=== PATIENT | female | born 1940 | race Caucasian/White ===

== ENCOUNTER 2016-06-02 10:36 | Outpatient (CLI) | payer MEDICARE ==
[2016-06-02 11:23] LABS: #Basophils 0.1 thou/uL (0.0-0.2); #Eosinphils 0.3 thou/uL (0.0-0.7); #Lymphocytes 1.6 thou/uL (1.20-3.40); #Monocytes 0.5 thou/uL (0.11-0.59); #Neutrophils 3.7 thou/uL (1.40-6.50); %Basophils 1.4 % (0.0-1.0); %Eosinophils 4.8 % (0.0-10.0); %Monocytes 8.7 % (0.0-10.0); %Neutrophils 60.1 % (42.0-75.0); Hemoglobin 11.7 g/dL (12.0-16.0); Mean Corpuscular HGB CONC 31.3 g/dL (32.0-36.0); Mean Corpuscular Hemoglobin 30.5 pg (27.0-31.0); Mean Corpuscular Volume 97.5 fl (81.0-99.0); Mean Platelet Volume 7.2 fL (7.4-10.4); Platelet Count 224 thou/uL (130-400); RBC Distribution Width 13.8 % (11.5-14.5); Red Blood Cell (RBC) Count 3.84 mill/uL (4.20-5.40); White Blood Cell (WBC) Count 6.2 thou/uL (4.8-10.8)
[2016-06-02 11:34] LABS: Hemoglobin A1c 9.6 % (4.0-6.0)
[2016-06-02 11:42] LABS: ALT (SGPT) 21 U/L (0-55); AST (SGOT) 18 U/L (5-34); Albumin 4.2 g/dL (3.4-4.8); Alkaline Phosphatase 89 U/L (40-150); Anion Gap 16 mmol/L (10-20); BUN (Urea Nitrogen) 25 mg/dL (9.8-20.1); Bilirubin, Total 0.6 mg/dL (0.2-1.2); Calc. Creatinine Clearance 0 mL/min (70-130); Calcium 9.9 mg/dL (7.8-10.44); Carbon Dioxide 25 mmol/L (23-31); Cardiac Risk 5.2 (Less than 4.5); Chloride 102 mmol/L (98-107); Cholesterol 282 mg/dL (< 200 Desired); Estimated GFR-MDRD 47; Globulin 2.5 g/dL (2.4-3.5); Glucose 249 mg/dL (83-110); HDL Cholesterol 54 mg/dL (>60 Neg Risk); LDL Cholesterol, Calculated 178 mg/dL; Potassium 4.6 mmol/L (3.5-5.1); Protein, Total 6.7 g/dL (5.8-8.1); Sodium 138 mmol/L (136-145); Triglycerides 248 mg/dL (Less than 150)
== END 2016-06-02 10:37 | disposition home or self-care (01) ==
LOC: MADLABBHPM 10:36
PROVIDERS: ATTEND Family Medicine
DX: E11.9 Type 2 diabetes mellitus without complications (principal); I10 Essential (primary) hypertension
CPT/HCPCS: 36415; 80053; 80061; 83036; 84443; 85025

== ENCOUNTER 2016-08-19 09:02 | Outpatient (CLI) | payer MEDICARE ==
[2016-08-19 10:42] LABS: #Basophils 0.1 thou/uL (0.0-0.2); #Eosinphils 0.6 thou/uL (0.0-0.7); #Lymphocytes 1.3 thou/uL (1.20-3.40); #Monocytes 0.6 thou/uL (0.11-0.59); #Neutrophils 3.3 thou/uL (1.40-6.50); %Basophils 2.5 % (0.0-1.0); %Lymphocytes 22.2 % (21.0-51.0); %Neutrophils 55.3 % (42.0-75.0); Hemoglobin 11.4 g/dL (12.0-16.0); Mean Corpuscular HGB CONC 32.6 g/dL (32.0-36.0); Mean Corpuscular Hemoglobin 31.5 pg (27.0-31.0); Mean Corpuscular Volume 96.6 fl (81.0-99.0); Platelet Count 218 thou/uL (130-400); RBC Distribution Width 12.3 % (11.5-14.5); Red Blood Cell (RBC) Count 3.63 mill/uL (4.20-5.40)
[2016-08-19 10:56] LABS: ALT (SGPT) 17 U/L (8-55); AST (SGOT) 15 U/L (5-34); Albumin 4.1 g/dL (3.4-4.8); Alkaline Phosphatase 89 U/L (40-150); Anion Gap 15 mmol/L (10-20); BUN (Urea Nitrogen) 27 mg/dL (9.8-20.1); Bilirubin, Total 0.6 mg/dL (0.2-1.2); Calc. Creatinine Clearance 0 mL/min (70-130); Calcium 9.7 mg/dL (7.8-10.44); Carbon Dioxide 25 mmol/L (23-31); Cardiac Risk 3.4 (Less than 4.5); Chloride 104 mmol/L (98-107); Cholesterol 202 mg/dl (< 200 Desired); Estimated GFR-MDRD 44; Globulin 2.5 g/dL (2.4-3.5); Glucose 298 mg/dL (83-110); HDL Cholesterol 59 mg/dL (>60 Neg Risk); LDL Cholesterol, Calculated 106 mg/dL; Potassium 4.5 mmol/L (3.5-5.1); Protein, Total 6.6 g/dL (6.0-8.3); Sodium 139 mmol/L (136-145); Triglycerides 185 mg/dL (Less than 150)
[2016-08-19 11:06] LABS: Hemoglobin A1c 10.8 % (4.0-6.0)
[2016-08-19 17:34] LABS: Creatinine, Urine 111.99 mg/dL (47-110); Microalbumin Urine 2.7 mg/dL (0.5-50.0); Microalbumin/Creat Ratio 24.1 mg/g (Less than 30)
== END 2016-08-19 09:03 ==
LOC: MADLABBHPM 09:02
PROVIDERS: ATTEND Family Medicine
DX: E78.5 Hyperlipidemia, unspecified (principal); F32.9 Major depressive disorder, single episode, unspecified; E11.9 Type 2 diabetes mellitus without complications
CPT/HCPCS: 36415; 80053; 80061; 82043; 83036; 85025

== ENCOUNTER 2017-02-22 11:51 | Outpatient (CLI) | payer MEDICARE ==
[2017-02-22 12:53] LABS: #Basophils 0.1 thou/uL (0.0-0.2); #Eosinphils 0.2 thou/uL (0.0-0.7); #Lymphocytes 1.7 thou/uL (1.20-3.40); #Monocytes 0.7 thou/uL (0.11-0.59); #Neutrophils 3.3 thou/uL (1.40-6.50); %Basophils 1.3 % (0.0-1.0); %Lymphocytes 27.7 % (21.0-51.0); %Monocytes 12.1 % (0.0-10.0); %Neutrophils 54.9 % (42.0-75.0); Mean Corpuscular Hemoglobin 30.6 pg (27.0-31.0); Mean Corpuscular Volume 95.6 fl (81.0-99.0); Mean Platelet Volume 7.7 fL (7.4-10.4); Platelet Count 185 thou/uL (130-400); RBC Distribution Width 13.3 % (11.5-14.5); Red Blood Cell (RBC) Count 3.61 mill/uL (4.20-5.40)
[2017-02-22 13:07] LABS: ALT (SGPT) 26 U/L (8-55); AST (SGOT) 17 U/L (5-34); Albumin 4.1 g/dL (3.4-4.8); Alkaline Phosphatase 72 U/L (40-150); Anion Gap 14 mmol/L (10-20); BUN (Urea Nitrogen) 21 mg/dL (9.8-20.1); Bilirubin, Total 0.5 mg/dL (0.2-1.2); Calc. Creatinine Clearance 0 mL/min (70-130); Calcium 9.8 mg/dL (7.8-10.44); Carbon Dioxide 28 mmol/L (23-31); Cardiac Risk 4.6 (Less than 4.5); Chloride 104 mmol/L (98-107); Cholesterol 246 mg/dl (< 200 Desired); Estimated GFR-MDRD 53; Globulin 2.6 g/dL (2.4-3.5); Glucose 75 mg/dL (83-110); HDL Cholesterol 54 mg/dL (>60 Neg Risk); LDL Cholesterol, Calculated 162 mg/dL; Potassium 4.4 mmol/L (3.5-5.1); Protein, Total 6.7 g/dL (6.0-8.3); Sodium 142 mmol/L (136-145); Triglycerides 148 mg/dL (Less than 150)
[2017-02-22 13:50] LABS: Hemoglobin A1c 7.1 % (4.0-6.0)
[2017-02-25 19:12] LABS: H. pylori IgA ABS Less than 9.0 units (0.0-8.9); H. pylori IgG ABS 1.1 U/mL (0.0-0.8); H. pylori IgM ABS 13.1 units (0.0-8.9)
== END 2017-02-22 11:52 | disposition home or self-care (01) ==
LOC: MADLABBHPM 11:51
PROVIDERS: ATTEND Family Medicine
DX: E11.9 Type 2 diabetes mellitus without complications (principal); E78.2 Mixed hyperlipidemia; R35.0 Frequency of micturition; R14.0 Abdominal distension (gaseous)
CPT/HCPCS: 80053; 80061; 83036; 85025; 87077; 87086; 87186

== ENCOUNTER 2017-08-19 08:34 | Outpatient (CLI) | payer MEDICARE ==
--- NOTE | 2017-08-19 09:22 | ULT ---
ULTRASOUND GALLBLADDER RIGHT UPPER QUADRANT: HISTORY: Right upper quadrant pain. COMPARISON: None. TECHNIQUE: Real-time, clifton scale, color Doppler, and spectral analysis of the right upper quadrant of the abdome n. FINDINGS: Visualized portions of the pancreas are unremarkable. Hepatic echotexture is normal. Negative Sonog raphic Nichols's sign according to the technologist. Common bile duct measures less than 3 mm, normal . Gallbladder wall thickness is normal. No pericholecystic fluid. The right kidney measures 10.9 x 4.4 x 4.6 cm without mass, hydronephrosis, or abnormal calcification s. IMPRESSION: Normal exam. POS: [facility]
== END 2017-08-19 08:35 | disposition home or self-care (01) ==
LOC: MADRAD 08:34
PROVIDERS: ATTEND Family Medicine
DX: R10.11 Right upper quadrant pain (principal)
CPT/HCPCS: 76705

== ENCOUNTER 2018-03-14 14:51 | Emergency (ER) | payer MEDICARE, OTHER ==
[~2018-03-14 14:51] MED LIST: Iopamidol 370 76% 125 ML VIAL FS ONE
[2018-03-14] MEDS ORDERED: Ondansetron PF 4 MG/2 ML Vial ONE (15:27)
[2018-03-14 15:36] LABS: #Basophils 0.1 thou/uL (0.0-0.2); #Eosinphils 0.3 thou/uL (0.0-0.7); #Lymphocytes 2.6 thou/uL (1.20-3.40); #Monocytes 0.6 thou/uL (0.11-0.59); #Neutrophils 4.4 thou/uL (1.40-6.50); %Basophils 1.5 % (0.0-1.0); %Eosinophils 4.1 % (0.0-10.0); %Lymphocytes 31.9 % (21.0-51.0); %Neutrophils 54.5 % (42.0-75.0); Hemoglobin 12.1 g/dL (12.0-16.0); Mean Corpuscular HGB CONC 32.6 g/dL (32.0-36.0); Mean Corpuscular Hemoglobin 30.9 pg (27.0-31.0); Mean Corpuscular Volume 94.8 fL (78.0-98.0); Mean Platelet Volume 6.5 fL (7.4-10.4); Platelet Count 278 thou/uL (130-400); RBC Distribution Width 13.2 % (11.5-14.5); Red Blood Cell (RBC) Count 3.91 mill/uL (4.20-5.40)
[2018-03-14 15:40] LABS: ALT (SGPT) 29 U/L (8-55); AST (SGOT) 25 U/L (5-34); Albumin 4.5 g/dL (3.4-4.8); Alkaline Phosphatase 81 U/L (40-150); Anion Gap 20 mmol/L (10-20); BUN (Urea Nitrogen) 31 mg/dL (9.8-20.1); Bilirubin, Total 0.6 mg/dL (0.2-1.2); Calc. Creatinine Clearance 0 mL/min (70-130); Calcium 9.9 mg/dL (7.8-10.44); Carbon Dioxide 23 mmol/L (23-31); Chloride 104 mmol/L (98-107); Estimated GFR-MDRD 41; Globulin 2.7 g/dL (2.4-3.5); Protein, Total 7.2 g/dL (6.0-8.3); Sodium 143 mmol/L (136-145)
[2018-03-14 15:41] LABS: Glucose 177 mg/dL (83-110)
--- NOTE | 2018-03-14 16:37 | CT ---
CT HEAD NONCONTRAST: 03/14/2018 HISTORY: Altered mental status. COMPARISON: 05/27/2015 FINDINGS: Again noted are chronic small vessel ischemic changes and cerebral volume loss, not significantly pro gressed from the prior exam. There is no evidence of an acute cortical infarction, hemorrhage, mass effect, or midline shift. The ventricular system is mildly prominent and slightly out of proportion to the degree of sulcal atrophy, likely related to greater central cerebral atrophy. This is also st able when compared to the study in 2016. There has been no significant interval change from the prior exam. IMPRESSION: 1. No acute intracranial abnormality is demonstrated. 2. Chronic small vessel ischemic changes and cerebral volume loss. POS: [facility]
[2018-03-14 16:46] LABS: Bilirubin Negative (Negative); Blood, Urine Negative (Negative); Glucose, Urine (Dipstick) 100 mg/dL (Negative); Leukocyte Trace (Negative); Nitrite Positive (Negative); Protein, Urine (Dipstick) Trace mg/dL (Neg-Trace); Specific Gravity, Urine 1.025 (1.005-1.030); Urobilinogen 0.2 mg/dL (0.2-1.0); pH, Urine 5.5 (5.0-9.0)
[2018-03-14 16:47] LABS: Clarity Slightly Cloudy (Clear); RBC/HPF 0-3 HPF (0-3)
[2018-03-14 16:48] LABS: Bacteria/HPF 4+ HPF (None Seen)
--- NOTE | 2018-03-14 17:45 | CT ---
CT ANGIOGRAM BRAIN WITH IV CONTRAST AND 3D RECONSTRUCTIONS: CT ANGIOGRAM NECK WITH IV CONTRAST AND 3D RECONSTRUCTIONS: 03/14/2018 HISTORY: Altered mental status. Gargled speech. Vomiting. COMPARISON: Noncontrast CT head, also obtained on 03/14/2018. FINDINGS: There are vascular calcifications seen in the aortic arch and involving the proximal subclavian arter ies bilaterally, but there is a normal arrangement of the great vessels at the aortic arch, and there is only minimal narrowing involving the proximal left subclavian artery. The inside of grea t vessels are otherwise patent. The bilateral subclavian arteries are otherwise patent. The innominate artery and the bilateral common carotid arteries are patent. The right common carotid artery is slightly deviated medially. There is vascular calcifications and mild atherosclerotic plaq ue seen involving the distal common carotid arteries, as well as at the origins involving the proxima l bilateral internal carotid arteries. However, there is less than 50% maximal stenosis involving th e bilateral internal carotid arteries, according to NASCET criteria. There is prominent enhancement within the venous structures, which limits evaluation of the vertebral arteries bilaterally, due to the paravertebral veins in this region. However, the vertebral arterie s do appear patent and are codominant. The more distal vertebral arteries in the superior cervical r egion are again not well evaluated due to adjacent venous structures but, again, do appear grossly pa tent. The basilar artery and bilateral posterior cerebral arteries are patent. There is a type origi n of the left posterior cerebral artery, which is a normal variant. There is a question of minimal a therosclerotic irregularity involving the proximal left posterior cerebral artery. This may be artif actual and due to slice selection. Vascular calcifications are seen in the carotid siphons, and the carotid arteries within the carotid siphons are difficult to delineate due to enhancement of the venous structures within the cavernous s inuses. However, although there is mild atherosclerotic regular calcification seen within the caroti d siphons, the distal bilateral internal carotid arteries do appear patent. The bilateral middle cerebral and anterior cerebral arteries are patent. No aneurysm is seen within the limitations of the technique of this exam. [place] lenses are not visualized. Degenerative changes are seen in the cervical spine. There is atelectasis within the upper lung zone s bilaterally. A mucus retention cyst and mucosal thickening is present in the left maxillary antrum, and mucosal th ickening is seen in a few left ethmoid air cells. IMPRESSION: 1. Less than 50% maximal stenosis involving the bilateral internal carotid arteries, according to NA SCET criteria. 2. Limited evaluation of the more distal vertebral arteries, but the vertebral arteries do appear co dominant; otherwise patent. 3. No significant focal stenosis or branch occlusion is seen involving the lower brule of [place] or verte brobasilar system; although, there is questionable mild atherosclerotic irregularity involving the pr oximal left posterior cerebral artery. 4. No aneurysm is seen within the limitations of the technique of this examination. 5. Sinus disease. POS: [facility]
== END 2018-03-14 18:30 | disposition short-term general hospital (02) ==
LOC: MADERS 14:51
DX: R42 Dizziness and giddiness (principal); N39.0 Urinary tract infection, site not specified; E11.9 Type 2 diabetes mellitus without complications; E78.5 Hyperlipidemia, unspecified; I10 Essential (primary) hypertension; F32.9 Major depressive disorder, single episode, unspecified; Z79.899 Other long term (current) drug therapy; Z79.84 Long term (current) use of oral hypoglycemic drugs
CPT/HCPCS: 36415; 36416; 51701; 70450; 70496; 70498; 80053; 81003; 81015; 83605; 84484; 85025; 87077; 87086; 87186; 93005; 94760; 96374; A4353; J2405

== ENCOUNTER 2023-08-13 20:00 | Emergency (ER) | payer OTHER, MEDICARE ==
[~2023-08-13 20:00] MED LIST changes: +Iopamidol 370 76% 100 ML VIAL ONE; -Iopamidol 370 76% 125 ML VIAL FS ONE; +Sodium Chloride 0.9% 100 ML BAG ONE
[2023-08-13 21:39] LABS: #Basophils 0.1 thou/uL (0.0-0.2); #Eosinphils 0.3 thou/uL (0.0-0.7); #Lymphocytes 1.9 thou/uL (1.20-3.40); #Monocytes 0.7 thou/uL (0.11-0.59); #Neutrophils 3.7 thou/uL (1.40-6.50); %Eosinophils 4.8 % (0.0-10.0); %Monocytes 10.4 % (0.0-10.0); %Neutrophils 55.8 % (42.0-75.0); Hemoglobin 12.3 g/dL (12.0-16.0); Mean Corpuscular HGB CONC 29.2 g/dL (32.0-36.0); Mean Corpuscular Volume 99.3 fl (78.0-98.0); Mean Platelet Volume 5.5 fL (7.4-10.4); Platelet Count 205 10x3/uL (130-400); RBC Distribution Width 14.2 % (11.5-14.5); Red Blood Cell (RBC) Count 4.23 mill/uL (4.20-5.40); White Blood Cell (WBC) Count 6.6 10x3/uL (4.8-10.8)
[2023-08-13] MEDS ORDERED: Aspirin Chewable 81 MG TAB ONE (21:43)
[2023-08-13] MEDS ORDERED: Nitroglycerin 0.4 MG TAB 1 EACH ONE (21:43)
[2023-08-13 22:01] LABS: Troponin I Less than 0.010 ng/mL (< 0.028)
[2023-08-13 22:06] LABS: ALT (SGPT) 20 U/L (8-55); AST (SGOT) 19 U/L (5-34); Albumin 4.3 g/dL (3.4-4.8); Alkaline Phosphatase 92 U/L (40-110); Anion Gap 15 mmol/L (10-20); BUN (Urea Nitrogen) 25 mg/dL (9.8-20.1); Bilirubin, Total 0.5 mg/dL (0.2-1.2); Calc. Creatinine Clearance 0 mL/min (70-130); Calcium 9.5 mg/dL (7.8-10.44); Carbon Dioxide 24 mmol/L (23-31); Chloride 105 mmol/L (98-107); Estimated GFR 29; Globulin 2.2 g/dL (2.4-3.5); Glucose 162 mg/dL (83-110); Lipase 82 U/L (8-78); Potassium 4.3 mmol/L (3.5-5.1); Protein, Total 6.5 g/dL (5.8-8.1); Sodium 140 mmol/L (136-145)
[2023-08-13] MEDS ORDERED: Sodium Chloride 0.9% 1,000 ML ONE (22:23)
[2023-08-13 23:21] LABS: Anion Gap 15 mmol/L (10-20); BUN (Urea Nitrogen) 24 mg/dL (9.8-20.1); Calc. Creatinine Clearance 0 mL/min (70-130); Calcium 8.8 mg/dL (7.8-10.44); Carbon Dioxide 20 mmol/L (23-31); Chloride 109 mmol/L (98-107); Estimated GFR 34; Glucose 139 mg/dL (83-110); Potassium 3.9 mmol/L (3.5-5.1); Sodium 140 mmol/L (136-145)
== END 2023-08-14 00:15 | disposition home or self-care (01) ==
LOC: MADERS 20:00
DX: K21.9 Gastro-esophageal reflux disease without esophagitis (principal); R42 Dizziness and giddiness; M62.89 Other specified disorders of muscle; E11.9 Type 2 diabetes mellitus without complications; I10 Essential (primary) hypertension; Z79.899 Other long term (current) drug therapy
CPT/HCPCS: 71045; 71275; 80053; 83690; 83880; 84484; 85025; 85379; 93005; 96360; J7050

== ENCOUNTER 2023-08-30 21:07 | Emergency (ER) | payer MEDICARE, OTHER | END 2023-08-30 23:30 | disposition home or self-care (01) | LOC: MADERS 21:07 | DX: S61.211A Laceration without foreign body of left index finger without damage to nail, initial encounter (principal); E11.9 Type 2 diabetes mellitus without complications; I10 Essential (primary) hypertension; Z79.899 Other long term (current) drug therapy; Z79.84 Long term (current) use of oral hypoglycemic drugs; W26.8XXA Contact with other sharp object(s), not elsewhere classified, initial encounter | CPT/HCPCS: 12001; 99282 ==

== ENCOUNTER 2023-11-16 08:28 | Outpatient (CLI) | payer MEDICARE ==
[2023-11-16] MEDS ORDERED: Iopamidol 370 76% 100 ML VIAL ONE (09:00)
== END 2023-11-16 08:29 | disposition home or self-care (01) ==
LOC: MADCT 08:28
PROVIDERS: ATTEND Family Medicine
DX: R91.8 Other nonspecific abnormal finding of lung field (principal)
CPT/HCPCS: 36415; 71260; 82565; Q9967

== ENCOUNTER 2024-04-21 09:35 | Outpatient (CLI) | payer MEDICARE ==
[~2024-04-21 09:35] MED LIST changes: -Sodium Chloride 0.9% 100 ML BAG ONE
== END 2024-04-21 09:36 | disposition home or self-care (01) ==
LOC: MADLAB 09:35
PROVIDERS: ATTEND Family Medicine
DX: R91.8 Other nonspecific abnormal finding of lung field (principal)
CPT/HCPCS: 36415; 71260; 82565; Q9967